=== PATIENT | male | born 1990 | race African-American/Black ===

== ENCOUNTER 2019-09-19 19:15 | Emergency (ER) | payer MEDICAID ==
[~2019-09-19] VITALS: Ht 165.1 cm; Wt 57.0 kg
[2019-09-19] MEDS ORDERED: CEFTRIAXONE SODIUM 250 MG/VIAL IM ONE (20:00)
[2019-09-19] MEDS ORDERED: IBUPROFEN 600MG TABLET PO ONE (20:00)
[2019-09-19] MEDS ORDERED: AZITHROMYCIN 500 MG TABLET PO ONE (20:00)
[2019-09-19 20:26] LABS: CLARITY URINE CLOUDY (CLEAR); COLOR URINE YELLOW (YELLOW); KETONES URINE NEGATIVE (NEGATIVE); LEUKOCYTE ESTERASE URINE 3+ (NEGATIVE); NITRITE URINE NEGATIVE (NEGATIVE); OCCULT BLOOD URINE 1+ (NEGATIVE); PH URINE 5.5 (4.5-8.0); PROTEIN URINE 1+ (NEGATIVE); SPECIFIC GRAVITY URINE 1.023 (1.005-1.030)
[2019-09-19 20:31] VITALS: BP 125/79
== END 2019-09-19 20:32 | disposition home or self-care (01) ==
LOC: ER 19:15
DX: A64 Unspecified sexually transmitted disease (principal)
CPT/HCPCS: 81003; 87086; 87491; 87591; 96372; 99283; J0696